=== PATIENT | male | born 1950 | race Caucasian/White ===

== ENCOUNTER 2019-09-18 14:58 | Inpatient (IN) | payer MEDICARE, OTHER ==
--- NOTE | 2019-09-18 15:32 | ED ---
General Adult HPI - General Chief complaint: Recheck/Abnormal Lab/Rx Stated complaint: Arm pain Time Seen by Provider: 09/18/19 15:12 Source: patient, RN notes reviewed Mode of arrival: ambulatory Limitations: no limitations - History of Present Illness Initial comments: 61-year-old male with a past medical history of CAD, hyperlipidemia, hypertension, [place] presents to the emergency department for left arm pain. Patient states that for the past 2 weeks he has had left arm pain on and off. Patient describes as a gnawing aching pain in the upper left arm that does not worsen with movement. States that sometimes when he has this pain he has some lightheadedness and nausea as well. Patient has not had any chest pain or shortness of breath. Patient is concerned about his heart as he does have a cardiac history. Patient has had 3 cardiac catheterizations with the last one being about 2-1/2 years ago at [facility]. Patient had a stent placed in the LAD at that time. Patient has taken aspirin today.Patient has no other complaints at this time including shortness of breath, chest pain, abdominal pain, nausea or vomiting, headache, or visual changes. - Related Data Allergies Allergy/AdvReac Type Severity Reaction Status Date / Time No Known Allergies Allergy Verified 09/18/19 15:10 Review of Systems ROS Statement: Those systems with pertinent positive or pertinent negative responses have been documented in the HPI. ROS Other: All systems not noted in ROS Statement are negative. Past Medical History Past Medical History: Coronary Artery Disease (CAD), Hyperlipidemia, Hypert ension, Myocardial Infarction ([place]), Thyroid Disorder Additional Past Medical History / Comment(s): Hernia History of Any Multi-Drug Resistant Organisms: None Reported Past Surgical History: Heart Catheterization, Heart Catheterization With Stent Additional Past Surgical History / Comment(s): Heart cath with stents x3 Past Psychological History: No Psychological Hx Reported Smoking Status: Former smoker Past Alcohol Use History: Occasional Past Drug Use History: None Reported General Exam Limitations: no limitations General appearance: alert, in no apparent distress Head exam: Present: atraumatic, normocephalic, normal inspection Eye exam: Present: normal appearance, PERRL, EOMI. Absent: scleral icterus, conjunctival injection, periorbital swelling ENT exam: Present: normal exam, mucous membranes moist Neck exam: Present: normal inspection, full ROM. Absent: tenderness, meningismus, lymphadenopathy Respiratory exam: Present: normal lung sounds bilaterally. Absent: respiratory distress, wheezes, rales, rhonchi, stridor Cardiovascular Exam: Present: regular rate, normal rhythm, normal heart sounds. Absent: systolic murmur, diastolic murmur, rubs, gallop, clicks Extremities exam: Present: normal inspection, full ROM (Full range of motion of the left upper extremity.), normal capillary refill (Refill less than 2 seconds, radial pulse 2+ in the left upper extremity.), other (Sensation intact in the left upper extremity.). 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 States it comes and goes. No chest pain or shortness of breath. Patient states that he had an LAD stent placed 3 years ago and was drinking nausea at that time without other symptoms. Stool is at [facility]. I did attempt to get report however have not been able to obtain this yet. CBC and CMP are unremarkable. Troponin is negative. Magnesium is 1.4, this was replaced orally. Chest x-ray showed no acute cardio pulmonary process. Patient has a heart score of 5. Given patient's symptoms of lightheadedness, nausea, left arm pain as well as strong cardiac history we will admit to rule out acute coronary event. - Lab Data Result diagrams: 09/18/19 15:28 09/18/19 15:28 Lab Results 09/18/19 09/18/19 09/18/19 Range/Units 15:28 15:28 15:28 WBC 5.7 (3.8-10.6) k/uL RBC 4.50 (4.30-5.90) m/uL Hgb 14.8 (13.0-17.5) gm/dL Hct 42.9 (39.0-53.0) % MCV 95.4 (80.0-100.0) fL MCH 32.9 (25.0-35.0) pg MCHC 34.5 (31.0-37.0) g/dL RDW 12.5 (11.5-15.5) % Plt Count 137 L (150-450) k/uL Neutrophils % (Manual) 52 % Lymphocytes % (Manual) 38 % Monocytes % (Manual) 8 % Eosinophils % (Manual) 2 % Neutrophils # (Manual) 2.96 (1.3-7.7) k/uL Lymphocytes # (Manual) 2.17 (1.0-4.8) k/uL Monocytes # (Manual) 0.46 (0-1.0) k/uL Eosinophils # (Manual) 0.11 (0-0.7) k/uL Nucleated RBCs 0 (0-0) /100 WBC Manual Slide Review Performed RBC Morphology Normal PT (9.0-12.0) sec INR (<1.2) APTT (22.0-30.0) sec Sodium 138 (137-145) mmol/L Potassium 4.7 (3.5-5.1) mmol/L Chloride 107 (98-107) mmol/L Carbon Dioxide 21 L (22-30) mmol/L Anion Gap 10 mmol/L BUN 19 (9-20) mg/dL Creatinine 1.14 (0.66-1.25) mg/dL Est GFR (CKD-EPI)AfAm 76 (>60 ml/min/1.73 sqM) Est GFR (CKD-EPI)NonAf 66 (>60 ml/min/1.73 sqM) Glucose 88 (74-99) mg/dL Calcium 10.3 H (8.4-10.2) mg/dL Magnesium 1.4 L (1.6-2.3) mg/dL Total Bilirubin 0.6 (0.2-1.3) mg/dL AST 74 H (17-59) U/L ALT 45 (21-72) U/L Alkaline Phosphatase 37 L (38-126) U/L Troponin I (0.000-0.034) ng/mL NT-Pro-B Natriuret Pep 33 pg/mL Total Protein 7.0 (6.3-8.2) g/dL Albumin 4.2 (3.5-5.0) g/dL 09/18/19 09/18/19 Range/Units 15:28 15:28 WBC (3.8-10.6) k/uL RBC (4.30-5.90) m/uL Hgb (13.0-17.5) gm/dL Hct (39.0-53.0) % MCV (80.0-100.0) fL MCH (25.0-35.0) pg MCHC (31.0-37.0) g/dL RDW (11.5-15.5) % Plt Count (150-450) k/uL Neutrophils % (Manual) % Lymphocytes % (Manual) % Monocytes % (Manual) % Eosinophils % (Manual) % Neutrophils # (Manual) (1.3-7.7) k/uL Lymphocytes # (Manual) (1.0-4.8) k/uL Monocytes # (Manual) (0-1.0) k/uL Eosinophils # (Manual) (0-0.7) k/uL Nucleated RBCs (0-0) /100 WBC Manual Slide Review RBC Morphology PT 11.7 (9.0-12.0) sec INR 1.1 (<1.2) APTT 23.6 (22.0-30.0) sec Sodium (137-145) mmol/L Potassium (3.5-5.1) mmol/L Chloride (98-107) mmol/L Carbon Dioxide (22-30) mmol/L Anion Gap mmol/L BUN (9-20) mg/dL Creatinine (0.66-1.25) mg/dL Est GFR (CKD-EPI)AfAm (>60 ml/min/1.73 sqM) Est GFR (CKD-EPI)NonAf (>60 ml/min/1.73 sqM) Glucose (74-99) mg/dL Calcium (8.4-10.2) mg/dL Magnesium (1.6-2.3) mg/dL Total Bilirubin (0.2-1.3) mg/dL AST (17-59) U/L ALT (21-72) U/L Alkaline Phosphatase (38-126) U/L Troponin I <0.012 (0.000-0.034) ng/mL NT-Pro-B Natriuret Pep pg/mL Total Protein (6.3-8.2) g/dL Albumin (3.5-5.0) g/dL Disposition Clinical Impression: Arm pain, left, Nausea, Hypomagnesemia Disposition: ADMITTED IP TO THIS HOSP Condition: Fair Is patient prescribed a controlled substance at d/c from ED?: No Referrals: Derik Olsen III, MD [Primary Care Provider] - 1-2 days Time of Disposition: 17:19
--- NOTE | 2019-09-18 15:48 | XR ---
EXAMINATION TYPE: XR chest 2V DATE OF EXAM: 09/18/2019 COMPARISON: NONE HISTORY: Chest pain TECHNIQUE: Frontal and lateral views of the chest are obtained. FINDINGS: Heart is normal. Lungs are clear of consolidation. There are chest leads. Costophrenic ang les are clear. Heart size is normal. Bony thorax is intact. There is mild spurring in the thoracic sp ine. IMPRESSION: No active cardiopulmonary disease. There is probably minimal fibrotic change.
[2019-09-18 15:55] LABS: Albumin 4.2 g/dL (3.5-5.0); Calcium 10.3 mg/dL (8.4-10.2); Magnesium 1.4 mg/dL (1.6-2.3); Potassium 4.7 mmol/L (3.5-5.1); Total Bilirubin 0.6 mg/dL (0.2-1.3)
[2019-09-18 16:08] LABS: INR 1.1 (<1.2); Partial Thromboplastin Time 23.6 sec (22.0-30.0); Prothrombin Time 11.7 sec (9.0-12.0)
[2019-09-18 16:18] LABS: HCT 42.9 % (39.0-53.0); HGB 14.8 gm/dL (13.0-17.5); MCH 32.9 pg (25.0-35.0); MCHC 34.5 g/dL (31.0-37.0); MCV 95.4 fL (80.0-100.0); Mean Platelet Volume 7.7; Platelet Count 137 k/uL (150-450); RDW 12.5 % (11.5-15.5); WBC 5.7 k/uL (3.8-10.6)
[2019-09-18 16:33] LABS: Eosinophils # (M) 0.11 k/uL (0-0.7); Lymphocytes # (M) 2.17 k/uL (1.0-4.8); Monocytes # (M) 0.46 k/uL (0-1.0); Neutrophils % (M) 52 %; Nucleated Red Blood Cells 0 /100 WBC (0-0); Total Cells Counted 100
[2019-09-18] MEDS ORDERED: MAGNESIUM OXIDE 400 MG TAB PO STA (17:16)
[2019-09-18] MEDS ORDERED: NITROGLYCERIN SL TABS 0.4 MG TAB SUBLINGUAL PRN (17:20)
[2019-09-18] MEDS ORDERED: HYDROcodone/APAP 5-325MG 1 EACH TAB PO PRN (18:00)
[2019-09-18] MEDS ORDERED: ALPRAZolam 0.25 MG TAB PO PRN (18:00)
[2019-09-18] MEDS ORDERED: TEMAZEPAM 15 MG CAP PO PRN (18:00)
--- NOTE | 2019-09-18 19:47 | HP ---
HISTORY AND PHYSICAL DATE OF SERVICE: 09/18/2019. CHIEF COMPLAINT: Left arm pain. HISTORY OF PRESENT ILLNESS: This 69-year-old gentleman with a past medical history of multiple medical problems including CAD stent, hypertension, hyperlipidemia, myocardial function, hypothyroidism being followed by Dr. Sabrina Nguyen and Dr. Gil, drug and alcohol treatment specialist in the outpatient setting was complaining of left arm pain. The pain is described as annoying, achy type of pain, does not worsen with movement and the patient has some lightheadedness, some nausea. The patient came to [facility] and admitted to the hospital for further evaluation and treatment. The last stress test was more than a year ago according to him. The patient did not have any other symptoms of shortness of breath, hematochezia, melena. No history of any pain elsewhere or sweating or palpitations associated. The patient came to [facility] and was admitted to the hospital for further evaluation and treatment. The initial evaluation showed hypomagnesemia and AST 74. Otherwise, troponins are negative. There is no history of fever, rigors, chills. PAST MEDICAL HISTORY: History of CAD stent, hypertension, hyperlipidemia, myocardial infarction, history of hernia repair. MEDICATIONS: Home medications are: 1. Coenzyme Q 100 mg p.o. daily. 2. Multivitamins. 3. Zestril 20 mg daily. 4. Synthroid 150 mcg p.o. daily. 5. Iron 1 tablet p.o. daily. 6. Lofibra 160 mg p.o. daily. 7. Plavix 75 mg p.o. daily. 8. Lipitor 80 mg q.h.s. 9. Tenormin 12.5 mg b.i.d. 10.Ecotrin 81 mg daily. ALLERGIES: None. FAMILY HISTORY: No history of heart disease or strokes in family. SOCIAL HISTORY: Previous history of smoking. No history of alcohol intake. REVIEW OF SYSTEMS: ENT: No diminished vision. No diminished hearing. CARDIOVASCULAR system: As mentioned earlier. RESPIRATORY: As mentioned earlier. GI no nausea or vomiting. : No dysuria. Nervous system: No numbness or weakness. ALLERGY/IMMUNOLOGY: No asthma or hayfever. MUSCULOSKELETAL as mentioned earlier. HEMATOLOGY/ONCOLOGY: No history of anemia. ENDOCRINE: No history of diabetes or hypothyroidism. CONSTITUTIONAL: As mentioned earlier. DERMATOLOGY negative. RHEUMATOLOGY: Negative. PSYCHIATRIC: Negative. PHYSICAL EXAM: Patient is alert, oriented x3. The pulse is 63, blood pressure 116/72, respirations 16, temperature 97.6, pulse ox 98% on 2 L. HEENT is conjunctivae normal. NECK: No JVD CARDIOVASCULAR: S1, S2 muffled. RESPIRATORY: Breath sounds diminished in the bases. A few scattered rhonchi. No crackles. ABDOMEN: Soft, nontender. No mass palpable. LEGS: No edema. No swelling. NERVOUS SYSTEM: Higher functions as mentioned earlier, moves all four limbs. No focal deficits. LYMPHATICS: No lymphadenopathy in the neck, axilla or groin. SKIN: No ulcer, no rashes and no bleeding. JOINTS: No active deforming arthropathy. The movements of the left arm is not painful. LABS: At this time shows CBC showed platelets 137. Sodium 130, potassium 4.7. Troponin negative. The magnesium 1.4, calcium is 10.3, and the EKG present on admission showed normal sinus rhythm and no acute changes. ASSESSMENT: 1. Left upper arm pain, rule out coronary disease, unstable angina. 2. History of coronary artery disease/ stent. 3. Hypertension. 4. Hyperlipidemia. 5. Myocardial infarction. 6. History of hypothyroidism. 7. Remote history of nicotine dependence. 8. Obesity with body mass of 34. 9. Hypomagnesemia. 10.Increased AST. RECOMMENDATION: In this 69-year-old gentleman recommend to continue current medications, unstable angina protocol, rule out myocardial infarction, cardiology consultation. Patient might require further evaluation including stress test. We will continue to monitor. Home medication will be resumed. Prognosis guarded. Discussed with patient. Copy of dictation being forwarded to Dr. Sabrina Nguyen who is the primary physician. MMODL / IJN: [id number] /
[2019-09-18 22:03] LABS: Albumin 4.2 g/dL (3.5-5.0); Calcium 10.1 mg/dL (8.4-10.2); Potassium 4.1 mmol/L (3.5-5.1); Total Bilirubin 0.7 mg/dL (0.2-1.3)
[2019-09-18] MEDS: FENOFIBRATE 160 MG TAB PO SCH (22:33)
[2019-09-18] MEDS: ATENOLOL 12.5 MG TAB PO SCH (22:33)
[2019-09-18] MEDS: ATORVASTATIN 80 MG TAB PO SCH (22:37)
[2019-09-19 04:18] LABS: Basophils % (A) 1 %; Eosinophils # (A) 0.2 k/uL (0-0.7); Eosinophils % (A) 4 %; HCT 44.1 % (39.0-53.0); HGB 14.5 gm/dL (13.0-17.5); Lymphocytes % (A) 35 %; MCH 31.9 pg (25.0-35.0); MCHC 32.8 g/dL (31.0-37.0); MCV 97.2 fL (80.0-100.0); Monocytes # (A) 0.4 k/uL (0-1.0); Monocytes % (A) 7 %; Neutrophils # (A) 2.8 k/uL (1.3-7.7); Neutrophils % (A) 49 %; Platelet Count 146 k/uL (150-450); RBC 4.54 m/uL (4.30-5.90); RDW 12.8 % (11.5-15.5); WBC 5.8 k/uL (3.8-10.6)
[2019-09-19 04:28] LABS: Calcium 9.8 mg/dL (8.4-10.2); Potassium 4.2 mmol/L (3.5-5.1)
[2019-09-19 08:49] VITALS: RESP 18
[2019-09-19] MEDS ORDERED: ASPIRIN 325 MG TAB PO SCH (09:00)
[2019-09-19] MEDS ORDERED: NON FORMULARY DRUG (Ubidecarenone [Co Q-10] 100 MG) PO SCH (09:00)
[2019-09-19] MEDS: MULTIVITAMINS, THERA 1 EACH TAB PO SCH (09:42)
[2019-09-19] MEDS: CLOPIDOGREL 75 MG TAB PO SCH (09:42)
[2019-09-19] MEDS: LISINOPRIL 20 MG TAB PO SCH (09:42)
[2019-09-19] MEDS: FERROUS SULFATE 325 MG TAB PO SCH (09:42)
[2019-09-19] MEDS: ASPIRIN 81 MG PO SCH (09:42)
[2019-09-19] MEDS: LEVOTHYROXINE 75 MCG TAB PO SCH (09:42)
[2019-09-19] MEDS ORDERED: Magnesium Replacement Protocol 1 EACH MISC MISCELLANE PRN ×2 (11:40→12:20)
[2019-09-19] MEDS: MAGNESIUM SULFATE-D5W PMX 1 GM in DEXTROSE/WATER 1 100ML.BAG IVPB SCH ×2 (14:47→14:49)
--- NOTE | 2019-09-19 15:38 | P.CRDCN ---
History of Present Illness Consult date: 09/19/19 Consult reason: chest pain History of present illness: The patient is a 69-year-old male with past medical history of CAD status post stenting, hypertension, hyperlipidemia, history of myocardial infarction, and hypothyroidism, who follows with Dr. Gil through [facility]. He came to the emergency room after developing an increase in shortness of breath with exertion and left arm discomfort. He states he initially thought this was related to playing his guitar more frequently over the past week, however when he developed shortness of breath and a brief episode of nausea, he decided to come to the emergency room. Cardiac enzymes were negative 3. EKG shows sinus mechanism without ST or T-wave changes. His magnesium level was initially low and was subsequently replaced in the emergency room. WBC 5.8, hemoglobin 14.5, hematocrit 44.1, platelet 146, sodium 139, potassium 4.2, BUN 18, creatinine 1.17, magnesium 1.4, LDL 66. PAST MEDICAL HISTORY: CAD status post stenting, hypertension, hyperlipidemia, myocardial infarction, hypothyroidism REVIEW OF SYSTEMS: No fever or chills. No cough or expectoration. No diaphoresis. Patient denies headache, dizziness, blurred vision, double vision. Patient denies any stomach discomfort. No nausea, vomiting. No hematochezia. No hematemesis. Denies any black stools or blood in his stools. Denies dysuria or hematuria. No muscle weakness or numbness. Left arm discomfort starting at the shoulder and radiating down through his wrist. Positive for shortness of julian th. Positive for fatigue. Negative for chest pressure. He also reports a significant amount awake in the last several months. PHYSICAL EXAMINATION: This is a 69 year-old male in no apparent distress at the time of my examination. HEENT: Head is atraumatic, normocephalic. Pupils are equal, round. Sclerae anicteric. Conjunctivae are clear. Mucous membranes of the mouth are moist. Neck is supple. There is no jugular venous distention. No carotid bruit is heard. CHEST EXAMINATION: Lungs are clear to auscultation. No chest wall tenderness is noted on palpation or with deep breathing. HEART EXAMINATION: Heart regular rate and rhythm. S1, S2 heard. No murmurs, gallops or rub. ABDOMEN: Soft, nontender. Bowel sounds are heard. No organomegaly noted. EXTREMITIES: 2+ peripheral pulses with no evidence of peripheral edema and no calf tenderness noted. NEUROLOGIC EXAMINATION: Patient is awake, alert and oriented x3. LABORATORY DATA: WBC 5.8, hemoglobin 14.5, hematocrit 44.1, platelet 146, sodium 139, potassium 4.2, BUN 18, creatinine 1.17, magnesium 1.4, LDL 66. Cardiac enzymes negative 3 FINAL ASSESSMENT AND PLAN: #1 chest discomfort, ACS workup ruled out acute ND #2 history of coronary artery disease #3 hypertension #4 hypomagnesemia #5 dyslipidemia, well controlled on current regimen PLAN: We will obtain 2-D echocardiogram to assess heart structure and function. Dobutamine stress echocardiogram to be performed. Patient will then follow-up with primary wood filler. Past Medical History Past Medical History: Coronary Artery Disease (CAD), Hyperlipidemia, Hypertension, Myocardial Infarction ([place]), Thyroid Disorder Additional Past Medical History / Comment(s): abdominal Hernia, arthritis, broncitis Last Myocardial Infarction Date:: unknown History of Any Multi-Drug Resistant Organisms: None Reported Past Surgical History: Heart Catheterization, Heart Catheterization With Stent, Hernia Repair Additional Past Surgical History / Comment(s): Heart cath with stents x3, hernia surgery with mesh, tumor removed right neck Past Anesthesia/Blood Transfusion Reactions: No Reported Reaction Date of Last Stent Placement:: 07/04/16 Past Psychological History: Anxiety Smoking Status: Former smoker Past Alcohol Use History: Occasional Past Drug Use History: None Reported - Past Family History Mother Family Medical History: No Reported History Father Family Medical History: Cancer Additional Family Medical History / Comment(s): esophagus Medications and Allergies Home Medications Medication Instructions Recorded Confirmed Type Aspirin EC [Ecotrin Low Dose] 81 mg PO DAILY 09/18/19 09/18/19 History Atenolol [Tenormin] 12.5 mg PO BID@1600,2100 09/18/19 09/18/19 History Atorvastatin [Lipitor] 80 mg PO HS 09/18/19 09/18/19 History Clopidogrel Bisulfate [Plavix] 75 mg PO DAILY 09/18/19 09/18/19 History Fenofibrate [Lofibra] 160 mg PO DAILY 09/18/19 09/18/19 History Iron(Unknown Dose) 1 tab PO DAILY 09/18/19 09/18/19 History Levothyroxine Sodium [Synthroid] 150 mcg PO DAILY 09/18/19 09/18/19 History Lisinopril [Zestril] 20 mg PO DAILY 09/18/19 09/18/19 History Multivitamins, Thera [Multivitamin 1 tab PO DAILY 09/18/19 09/18/19 History (formulary)] Ubidecarenone [Co Q-10] 100 mg PO DAILY 09/18/19 09/18/19 History Allergies Allergy/AdvReac Type Severity Reaction Status Date / Time No Known Allergies Allergy Verified 09/18/19 17:42 Physical Exam Vitals: Vital Signs Temp Pulse Pulse Pulse Resp BP BP 09/19/19 12:00 97.6 F 61 18 132/77 09/19/19 08:53 97.9 F 60 18 142/89 09/19/19 08:47 60 18 125/71 09/19/19 07:39 97.7 F 61 17 135/100 09/19/19 03:09 58 L 20 100/75 09/18/19 23:51 98.1 F 72 16 133/68 09/18/19 22:40 68 16 09/18/19 20:31 98.3 F 56 L 16 130/73 09/18/19 19:00 144/84 09/18/19 18:00 98.1 F 62 18 09/18/19 16:42 63 16 116/72 09/18/19 15:33 68 Pulse Ox 09/19/19 12:00 97 09/19/19 08:53 99 09/19/19 08:47 98 09/19/19 07:39 95 09/19/19 03:09 94 L 09/18/19 23:51 98 09/18/19 22:40 98 09/18/19 20:31 98 09/18/19 19:00 09/18/19 18:00 99 09/18/19 16:42 98 09/18/19 15:33 Intake and Output 09/19/19 09/19/19 09/19/19 06:59 14:59 22:59 Other: Voiding Method Toilet Results 09/19/19 03:38 09/19/19 03:38 Cardiac Enzymes 09/18/19 09/18/19 09/18/19 Range/Units 15:28 15:28 21:21 AST 74 H (17-59) U/L Troponin I <0.012 <0.012 (0.000-0.034) ng/mL 09/18/19 09/19/19 Range/Units 21:21 03:38 AST 71 H (17-59) U/L Troponin I <0.012 (0.000-0.034) ng/mL Coagulation 09/18/19 Range/Units 15:28 PT 11.7 (9.0-12.0) sec APTT 23.6 (22.0-30.0) sec Lipids 09/19/19 Range/Units 03:38 Triglycerides 272 H (<150) mg/dL Cholesterol 148 (<200) mg/dL HDL Cholesterol 28 L (40-60) mg/dL CBC 09/18/19 09/19/19 Range/Units 15:28 03:38 WBC 5.7 5.8 (3.8-10.6) k/uL RBC 4.50 4.54 (4.30-5.90) m/uL Hgb 14.8 14.5 (13.0-17.5) gm/dL Hct 42.9 44.1 (39.0-53.0) % Plt Count 137 L 146 L (150-450) k/uL Comprehensive Metabolic Panel 09/18/19 09/18/19 09/19/19 Range/Units 15:28 21:21 03:38 Sodium 138 140 139 (137-145) mmol/L Potassium 4.7 4.1 4.2 (3.5-5.1) mmol/L Chloride 107 104 104 (98-107) mmol/L Carbon Dioxide 21 L 28 29 (22-30) mmol/L BUN 19 17 18 (9-20) mg/dL Creatinine 1.14 1.15 1.17 (0.66-1.25) mg/dL Glucose 88 94 99 (74-99) mg/dL Calcium 10.3 H 10.1 9.8 (8.4-10.2) mg/dL AST 74 H 71 H (17-59) U/L ALT 45 45 (21-72) U/L Alkaline Phosphatase 37 L 45 (38-126) U/L Total Protein 7.0 7.0 (6.3-8.2) g/dL Albumin 4.2 4.2 (3.5-5.0) g/dL Current Medications Generic Name Dose Route Start Last Admin Trade Name Freq PRN Reason Stop Dose Admin Hydrocodone Bitart/Acetaminophen 1 each 09/18/19 18:00 [place] 5-325 PO Q6HR PRN Pain Alprazolam 0.25 mg 09/18/19 18:00 Xanax PO TID PRN Anxiety Aspirin 81 mg 09/19/19 09:00 09/19/19 09:42 Aspirin PO 81 mg DAILY RANGEL Administration Atenolol 12.5 mg 09/18/19 21:00 09/18/19 22:33 Tenormin PO 12.5 mg BID@1600,2100 RANGEL Administration Atorvastatin Calcium 80 mg 09/18/19 21:00 09/18/19 22:37 Lipitor PO 80 mg HS RANGEL Administration Clopidogrel Bisulfate 75 mg 09/19/19 09:00 09/19/19 09:42 Plavix PO 75 mg DAILY RANGEL Administration Fenofibrate 160 mg 09/19/19 09:00 09/18/19 22:33 Lofibra PO 160 mg DAILY RANGEL Administration Ferrous Sulfate 325 mg 09/19/19 09:00 09/19/19 09:42 Feosol PO 325 mg DAILY RANGEL Administration Levothyroxine Sodium 150 mcg 09/19/19 06:30 09/19/19 09:42 Synthroid PO 150 mcg DAILY@0630 RANGEL Administration Lisinopril 20 mg 09/19/19 09:00 09/19/19 09:42 Zestril PO 20 mg DAILY RANGEL Administration Miscellaneous Information 1 each 09/19/19 11:40 Magnesium Per Protocol MISCELLANE DAILY PRN Per Protocol Protocol Miscellaneous Information 1 each 09/19/19 12:20 Magnesium Per Protocol MISCELLANE DAILY PRN Per Protocol Protocol Multivitamins 1 each 09/19/19 09:00 09/19/19 09:42 Theragran PO 1 each DAILY RANGEL Administration Nitroglycerin 0.4 mg 09/18/19 17:20 Nitrostat SUBLINGUAL Q5M PRN Chest Pain Temazepam 15 mg 09/18/19 18:00 Restoril PO HS PRN Insomnia Intake and Output 09/19/19 09/19/19 09/19/19 06:59 14:59 22:59 Other: Voiding Method Toilet 09/19/19 03:38 09/19/19 03:38
--- NOTE | 2019-09-19 18:15 | PN ---
PROGRESS NOTE DATE OF SERVICE: 09/19/2019 This 69-year-old gentleman admitted with left arm pain is being closely monitored. Cardiology is recommending a stress test at this time. No chest pain. No palpitations. No fever. The EKG showed no acute abnormality. EXAM: Alert and oriented x3. Pulse is 61. Blood pressure 130/77, respiration 18, temperature 97.2, pulse ox 97% on room air. HEENT: Conjunctivae normal. NECK: No JVD. CARDIOVASCULAR: S1, S2 muffled. RESPIRATORY: Breath sounds diminished in the bases. No rhonchi. No crackles. ABDOMEN is soft, nontender. LEGS: No edema. No swelling. CENTRAL NERVOUS SYSTEM: No focal deficits. LABS: CBC within normal limits except platelets 146, magnesium is 1.5. Triglycerides 272. ASSESSMENT: 1. Left upper arm pain, rule out coronary artery disease and unstable angina. 2. History of coronary artery disease/ stent. 3. Hypertension. 4. Hyperlipidemia. 5. History of myocardial infarction. 6. History of hypothyroidism. 7. Remote history of nicotine dependence. 8. Obesity with body mass index of 34. 9. Hypomagnesemia. 10.Increased AST. 11.Hypertriglyceridemia. RECOMMENDATIONS AND DISCUSSION: This 69-year-old gentleman who presented with multiple complex medical issues, we will monitor the patient closely, continue the current medications, management and symptomatic treatment. Otherwise, at this time, I would recommend magnesium supplementation and closely follow with Cardiology. Guarded prognosis because of multiple complex medical issues and further recommendations to follow. MMODL / IJN: [id number] /
[2019-09-19] MEDS: ATORVASTATIN 80 MG TAB PO SCH (20:32)
[2019-09-19] MEDS: ATENOLOL 12.5 MG TAB PO SCH (20:33)
[2019-09-20] MEDS: LEVOTHYROXINE 75 MCG TAB PO SCH (06:06)
[2019-09-20 07:13] LABS: Basophils % (A) 1 %; Eosinophils # (A) 0.2 k/uL (0-0.7); Eosinophils % (A) 4 %; HCT 44.8 % (39.0-53.0); Lymphocytes % (A) 39 %; MCH 32.3 pg (25.0-35.0); MCHC 33.4 g/dL (31.0-37.0); MCV 96.8 fL (80.0-100.0); Mean Platelet Volume 7.2; Monocytes # (A) 0.4 k/uL (0-1.0); Monocytes % (A) 8 %; Neutrophils # (A) 2.3 k/uL (1.3-7.7); Neutrophils % (A) 44 %; Platelet Count 133 k/uL (150-450); RBC 4.63 m/uL (4.30-5.90); RDW 12.6 % (11.5-15.5); WBC 5.2 k/uL (3.8-10.6)
[2019-09-20 07:20] LABS: Calcium 9.5 mg/dL (8.4-10.2); Magnesium 1.8 mg/dL (1.6-2.3); Potassium 4.6 mmol/L (3.5-5.1)
[2019-09-20] MEDS ORDERED: DOBUTamine DRIP for NUC MED 500 MG in DEXTROSE/WATER 1 250ML.BAG IV ONE (07:50)
[2019-09-20] MEDS ORDERED: MAGNESIUM OXIDE 400 MG TAB PO SCH (09:00)
[2019-09-20] MEDS: FENOFIBRATE 160 MG TAB PO SCH (13:56)
[2019-09-20] MEDS: CLOPIDOGREL 75 MG TAB PO SCH (13:56)
[2019-09-20] MEDS: ASPIRIN 81 MG PO SCH (13:56)
[2019-09-20] MEDS: FERROUS SULFATE 325 MG TAB PO SCH (13:56)
[2019-09-20] MEDS: MULTIVITAMINS, THERA 1 EACH TAB PO SCH (13:56)
[2019-09-20] MEDS: LISINOPRIL 20 MG TAB PO SCH (13:56)
[2019-09-20 16:22] VITALS: BP 138/88; PULSE 65; TEMP 98.2
[2019-09-20] MEDS: ATENOLOL 12.5 MG TAB PO SCH (16:56)
--- NOTE | 2019-09-20 18:28 | P.STRESS ---
- Stress Test Note Stress Test Results/Findings: Exam Performed: Exam Date: Reason for Exam: Height: 5 ft 9 in Weight: 104.326 kg Protocol: Stage: Duration of Exercise: Resting Heart Rate: Resting Blood Pressure: Maximum Achieved Heart Rate: Maximum Achieved Blood Pressure: 85% PMHR: 100% PMHR: METS: Technologist Comment: Stress Test Results/Findings: This is a 69-year-old gentleman with history of hypertension and hypercholesterolemia who was admitted to the hospital with the shortness of breath and numbness of the face. Stress data: Baseline EKG showed sinus rhythm, SC interval and QRS duration. Blood pressure at rest was 130/67 with pulse rate of 70. A standard dose of dobutamine. His was initiated at 10 mics and was titrated to 30 mics, achieving a maximum heart rate of 129 with a blood pressure of about 109/52, at peak. EKGs taken during and after the dobutamine infusion did not reveal any changes of ischemia. Echo data: Baseline echo images show normal wall motion and thickening. Exercise echo images showed augmentation of wall motion and thickening in all segments. Final impression: #1. Negative dobutamine stress test #2. Negative dobutamine stress echo with contrast
--- NOTE | 2019-09-21 11:41 | ECHOS ---
Stress Test Results/Findings: Exam Performed: Exam Date: Reason for Exam: Height: 5 ft 9 in Weight: 104.326 kg Protocol: Dobutamine Stress Echo Stage: 3 Duration of Exercise: 9:00 Resting Heart Rate: 70 Resting Blood Pressure: 132/67 Maximum Achieved Heart Rate: 129 Maximum Achieved Blood Pressure: 137/59 85% PMHR: 129 100% PMHR: 152 METS: Technologist Comment: Stress Test Results/Findings: This is a 69-year-old gentleman with history of hypertension and hypercholesterolemia who was admitted to the hospital with the shortness of breath and numbness of the face. Stress data: Baseline EKG showed sinus rhythm, ID interval and QRS duration. Blood pressure at rest was 130/67 with pulse rate of 70. A standard dose of dobutamine. His was initiated at 10 mics and was titrated to 30 mics, achieving a maximum heart rate of 129 with a blood pressure of about 109/52, at peak. EKGs taken during and after the dobutamine infusion did not reveal any changes of ischemia. Echo data: Baseline echo images show normal wall motion and thickening. Exercise echo images showed augmentation of wall motion and thickening in all segments. Final impression: #1. Negative dobutamine stress test #2. Negative dobutamine stress echo with contrast MTDD
== END 2019-09-20 18:46 | disposition home or self-care (01) | DRG 313 ==
LOC: EC 14:58 → 3SCARD 17:39 → 1SOBS 17:53 → OBSVTOIN 09-19 13:14
PROVIDERS: ADMIT Hospitalist; ATTEND Hospitalist
DX: R07.9 Chest pain, unspecified (principal); I25.10 Atherosclerotic heart disease of native coronary artery without angina pectoris; E03.9 Hypothyroidism, unspecified; E66.9 Obesity, unspecified; E78.1 Pure hyperglyceridemia; E78.5 Hyperlipidemia, unspecified; E83.42 Hypomagnesemia; I10 Essential (primary) hypertension; I25.2 Old myocardial infarction; Z68.34 Body mass index [BMI] 34.0-34.9, adult; Z79.02 Long term (current) use of antithrombotics/antiplatelets; Z79.82 Long term (current) use of aspirin; Z79.890 Hormone replacement therapy; Z79.899 Other long term (current) drug therapy; Z87.891 Personal history of nicotine dependence; Z95.5 Presence of coronary angioplasty implant and graft; Z80.0 Family history of malignant neoplasm of digestive organs; M19.90 Unspecified osteoarthritis, unspecified site; F41.9 Anxiety disorder, unspecified
CPT/HCPCS: 36415; 71046; 80048; 80053; 80061; 83735; 83880; 84484; 85025; 85610; 85730; 93005; 93306; 93351; 99284

== ENCOUNTER 2023-04-08 11:04 | Day surgery (SDC) | payer MEDICARE, OTHER ==
[2023-03-06 13:56] VITALS: BMI 33.2
[~2023-04-08 11:04] MED LIST: LACTATED RINGERS 1,000 ML IV SCH; LIDOCAINE 1% (10MG/ML) FOR IV START INTRADERMA PRN
[2023-04-08 12:00] VITALS: TEMP 97
[2023-04-08] MEDS ORDERED: LIDOCAINE 2% INJ 20 MG/ML (2 ML VIAL) ONE (12:12)
[2023-04-08] MEDS ORDERED: PROPOFOL 10 MG/ML 20 ML VIAL IV ONE (12:12)
--- NOTE | 2023-04-08 12:25 | P.GSHP ---
History of Present Illness H&P Date: 04/08/23 Chief Complaint: Abnormal stool test 72-year-old male had recent cologuard test that was abnormal. He has no bowel complaints. Last colonoscopy over 10 years ago. History of colon cancer in an uncle. Past Medical History Past Medical History: Coronary Artery Disease (CAD), Hyperlipidemia, Hypertension, Myocardial Infarction ([place]), Osteoarthritis (OA), Thyroid Disorder Additional Past Medical History / Comment(s): Abdominal Hernia, arthritis, bronchitis, hypothyroid, positive Cologuard. Last Myocardial Infarction Date:: unknown History of Any Multi-Drug Resistant Organisms: None Reported Past Surgical History: Heart Catheterization, Heart Catheterization With Stent, Hernia Repair Additional Past Surgical History / Comment(s): Heart cath with stents x3, hernia surgery with mesh, tumor removed right neck Past Anesthesia/Blood Transfusion Reactions: No Reported Reaction Date of Last Stent Placement:: 07/04/16 Past Psychological History: Anxiety Additional Psychological History / Comment(s): attention to detail Smoking Status: Former smoker Past Alcohol Use History: Daily Additional Past Alcohol Use History / Comment(s): wine and beer Past Drug Use History: Marijuana Additional Drug Use History / Comment(s): past marijuana use over 40 years ago - Past Family History Mother Family Medical History: Cancer Additional Family Medical History / Comment(s): breast Father Family Medical History: Cancer Additional Family Medical History / Comment(s): Esophagus Brother(s) Family Medical History: Cancer Additional Family Medical History / Comment(s): lung Medications and Allergies Home Medications Medication Instructions Recorded Confirmed Type Aspirin EC [Ecotrin Low Dose] 81 mg PO DAILY 09/18/19 04/03/23 History Atorvastatin [Lipitor] 80 mg PO HS 09/18/19 04/03/23 History Clopidogrel Bisulfate [Plavix] 75 mg PO DAILY 09/18/19 04/03/23 History Fenofibrate [Lofibra] 160 mg PO DAILY 09/18/19 04/03/23 History Iron(Unknown Dose) 1 tab PO DAILY 09/18/19 04/03/23 History Levothyroxine Sodium [Synthroid] 150 mcg PO DAILY 09/18/19 04/03/23 History Multivitamins, Thera [Multivitamin 1 tab PO DAILY 09/18/19 04/03/23 History (formulary)] Ubidecarenone [Co Q-10] 100 mg PO DAILY 09/18/19 04/03/23 History atenoloL [Tenormin] 12.5 mg PO BID 09/18/19 04/03/23 History lisinopriL [Zestril] 20 mg PO DAILY 09/18/19 04/03/23 History Ascorbic Acid [Vitamin C] 500 mg PO DAILY 03/06/23 04/03/23 History Magnesium 250 mg PO DAILY 03/06/23 04/03/23 History Zinc Gluconate [Zinc] 50 mg PO DAILY 03/06/23 04/03/23 History flaxseed oiL [[place]-3 Flaxseed Oil] 1,000 mg PO DAILY 03/06/23 04/03/23 History hydrOXYzine pamoate [Vistaril] 10 mg PO DAILY PRN 03/06/23 04/03/23 History Allergies Allergy/AdvReac Type Severity Reaction Status Date / Time No Known Allergies Allergy Verified 04/03/23 11:12 Surgical - Exam Vital Signs Temp Pulse Resp BP Pulse Ox 97 F L 77 20 156/91 97 04/08/23 11:50 04/08/23 11:50 04/08/23 11:50 04/08/23 11:50 04/08/23 11:50 Physical exam: General: Well-developed, well-nourished HEENT: Normocephalic, sclerae nonicteric Abdomen: Nontender, nondistended Extremities: No edema Neuro: Alert and oriented Assessment and Plan (1) Abnormal stool test Narrative/Plan: Will proceed with colonoscopy at this time. Current Visit: Yes Status: Acute Code(s): R19.5 - OTHER FECAL ABNORMALITIES SNOMED Code(s): 291342211
--- NOTE | 2023-04-08 12:44 | P.PCN ---
Date of Procedure: 04/08/23 Procedure(s) Performed: PREOPERATIVE DIAGNOSIS: Abnormal stool test POSTOPERATIVE DIAGNOSIS: Rectal polyps PROCEDURE: Colonoscopy with snare polypectomy ANESTHESIA: MAC SURGEON: Gian Fuller M.D. SPECIMENS: Rectal polyp ENDOSCOPIC PROCEDURE: The patient was placed on the endoscopy table in the left decubitus position. The Olympus colonoscope was inserted into the anus and passed under direct visualization to the base of the cecum. The appendiceal orifice was visualized. From that point the scope was slowly withdrawn inspecting all surfaces carefully. There were no neoplastic inflammatory or polypoid lesions throughout the cecum, ascending, transverse, descending, s and sigmoid colon. In the rectum a few small polyps were seen and removed using the snare with cautery technique. There was no visible diverticulosis. Digital rectal examination was normal. The patient was taken to the recovery room in stable condition per anesthesia guidelines. RECOMMENDATIONS: Await biopsy results. Will contact patient with pathology findings.
[2023-04-08 13:11] VITALS: BP 143/82; PULSE 62; RESP 16
== END 2023-04-08 13:25 | disposition home or self-care (01) ==
LOC: ORWHC2ENDO 11:04
PROVIDERS: ATTEND Surgery
DX: K62.1 Rectal polyp (principal); Z80.0 Family history of malignant neoplasm of digestive organs; I25.10 Atherosclerotic heart disease of native coronary artery without angina pectoris; Z95.5 Presence of coronary angioplasty implant and graft; I10 Essential (primary) hypertension; E78.5 Hyperlipidemia, unspecified; E03.9 Hypothyroidism, unspecified; I25.2 Old myocardial infarction; M19.90 Unspecified osteoarthritis, unspecified site; F41.9 Anxiety disorder, unspecified; Z87.891 Personal history of nicotine dependence; F10.20 Alcohol dependence, uncomplicated; F12.90 Cannabis use, unspecified, uncomplicated; Z79.82 Long term (current) use of aspirin; Z79.899 Other long term (current) drug therapy; Z79.02 Long term (current) use of antithrombotics/antiplatelets; Z79.890 Hormone replacement therapy
CPT/HCPCS: 88305; 45385; J2704; J2001